=== PATIENT | female | born 1975 | race Two or more races ===

== ENCOUNTER 2023-05-31 02:24 | Emergency (ER) | payer OTHER ==
[2023-05-31] MEDS ORDERED: ALBUTEROL SO4 2.5/IPRATROPIUM 0.5 INH SOL 3 ML VIAL.NEB. NEB ONE (02:36)
[2023-05-31] MEDS ORDERED: predniSONE 20 MG TABLET (UD) ONE (02:36)
[2023-05-31] MEDS: predniSONE 20 MG TABLET (UD) PO ONE (02:40)
[2023-05-31] MEDS: ALBUTEROL SO4 2.5/IPRATROPIUM 0.5 INH SOL 3 ML VIAL.NEB. NEB SCH (02:41)
[2023-05-31 02:47] VITALS: BP 104/79; PULSE 87; RESP 20; TEMP 97.9; BMI 21.7
== END 2023-05-31 03:16 | disposition home or self-care (01) ==
LOC: FER 02:24
PROC: 3E0F7GC Introduction of Other Therapeutic Substance into Respiratory Tract, Via Natural or Artificial Opening (ICD-10-PCS; principal; 2023-05-31)
DX: J45.901 Unspecified asthma with (acute) exacerbation (principal)
CPT/HCPCS: 99283-25